=== PATIENT | female | born 1975 ===

== ENCOUNTER → 2017-05-26 | Outpatient (CLI) | payer BC, OTHER ==
[~2017-05-26] MED LIST: IBU600 PO; NORG1TAB5 PO; ONDA4TAB PO
--- NOTE | 2017-05-27 14:00 | RADIOLOGY IMAGING REPORT ---
FACILITY: [facility] - [place] PATIENT NAME: ISRRAEL FERREIRA : [id number] MR: [id number] V: [id number] EXAM DATE: [id number] ORDERING PHYSICIAN: MOHIT TODD TECHNOLOGIST: Jasmin Anderson PROCEDURE:BILATERAL DIGITAL SCREENING MAMMOGRAM WITH CAD ASSISTED INTERPRETATION & 3D TOMOSYNTHESIS COMPARISON:Mammograms 04/29/2016 & 04/25/2015 INDICATIONS:SCREENING TECHNIQUE: This examination was reviewed with the aid of CAD. MLO & CC views, as well as pushback breast implant views were obtained. FINDINGS: Breast tissue demonstrates scattered fibroglandular tissue densities. Scattered benign calcifications are seen in both breasts. Bilateral breast implants are intact. DIAGNOSTIC CATEGORY 2--BENIGN FINDING. RECOMMENDATIONS: ROUTINE MAMMOGRAM AND CLINICAL EVALUATION. IMPRESSION: BIRADS 2: Benign finding No mammographic evidence for malignancy. Breast implants are intact. Dictated by: Kuldip Forman M.D. on 05/27/2017 at 12:17 Transcribed by: RON on 05/27/2017 at 13:26 Approved by: Kuldip Forman M.D. on 05/27/2017 at 13:59 [facility]
== END ==
LOC: MAMO 00:55
PROVIDERS: ATTEND Student in an Organized Health Care Education/Training Program
DX: Z12.31 Encounter for screening mammogram for malignant neoplasm of breast (principal); R92.1 Mammographic calcification found on diagnostic imaging of breast; Z98.82 Breast implant status
CPT/HCPCS: 77063; 77067

== ENCOUNTER → 2018-02-15 | Outpatient (CLI) | payer BC ==
[2018-02-15 09:48] LABS: LDL CHOLESTEROL 67 mg/dl
== END ==
LOC: LAB 07:28
DX: R53.83 Other fatigue (principal)
CPT/HCPCS: 36415; 82040; 82247; 82310; 82374; 82435; 82465; 82565; 82728; 82947; 83540; 83718; 84075; 84132; 84155; 84295; 84450; 84460; 84466; 84478; 84520; 85651; 86140